=== PATIENT | male | born 1950 | race Caucasian/White ===

== ENCOUNTER 2017-05-15 13:06 | Emergency (ER) | payer MEDICARE ==
[~2017-05-15] VITALS: Ht 170.2 cm; Wt 57.1 kg
[2017-05-15 13:11] VITALS: BP 171/81; PULSE 96; RESP 16; TEMP 98; O2SAT 96
[2017-05-15] MEDS ORDERED: AMLO5 PO (13:21)
[2017-05-15] MEDS ORDERED: LISI-515 PO (13:21)
[2017-05-15] MEDS ORDERED: ASPI81CH CHEW (13:21)
[2017-05-15] MEDS ORDERED: ALLO300T2 PO (13:21)
--- NOTE | 2017-05-15 13:26 | PD ---
HPI Chief Complaint: Bleeding Time Seen by Provider: 13:14 Travel History International Travel<30 days: No Contact w/Intl Traveler<30days: No Traveled to known affect area: No History of Present Illness HPI This 67-year-old male is complaining of bleeding from his rectum. He felt that he was wet and he felt behind him and he noted some bright red blood. He has a history of hemorrhoids and has had sporadic bleeding in the past. The bleeding is having now is not associated with bowel movements and has been fairly consistent. It started about an hour ago. He is not on any blood thinners. He does take a baby aspirin daily. He also has a history of hypertension. [facility] Past Medical History Diminished Hearing: No Gout: Yes Hypertension: Yes Influenza Vaccination: No ?: Not Past Surgical History Surgical History: No Previous Surgery Social History Alcohol Use: Yes Tobacco Use: Yes Allergies-Medications (Allergen,Severity, Reaction): Coded Allergies: No Known Allergies (Unverified , 05/15/17) Reported Meds & Prescriptions Reported Meds & Active Scripts Active Reported Norvasc (Amlodipine Besylate) 5 Mg Tab 5 Mg PO DAILY Lisinopril 20 Mg Tab 20 Mg PO DAILY Allopurinol 300 Mg Tab 300 Mg PO DAILY Aspirin 81 Mg Chew 81 Mg CHEW DAILY Review of Systems General / Constitutional: No: Fever, Chills Eyes: No: Diploplia, Blurred Vision HENT: No: Headaches, Vertigo Cardiovascular: No: Chest Pain or Discomfort, Palpitations Respiratory: No: Cough, Shortness of Breath Gastrointestinal: Positive: Hematochezia, No: Vomiting, Diarrhea Genitourinary: No: Urgency, Frequency Musculoskeletal: No: Myalgias, Arthralgias Skin: No Rash Neurologic: No: Weakness, Dizziness Physical Exam Narrative GENERAL: Well-developed male SKIN: Focused skin assessment warm/dry. HEAD: Atraumatic. Normocephalic. EYES: Pupils equal and round. No scleral icterus. No injection or drainage. ENT: No nasal bleeding or discharge. Mucous membranes pink and moist. NECK: Trachea midline. No JVD. CARDIOVASCULAR: Regular rate and rhythm. No murmur appreciated. RESPIRATORY: No accessory muscle use. Clear to auscultation. Breath sounds equal bilaterally. GASTROINTESTINAL: Abdomen soft, non-tender, nondistended. Hepatic and splenic margins not palpable. On inspection of the anus no bleeding site canbe seen. He does have an external hemorrhoid skin tag. There is a small papule adjacent to the anus which is not bleeding. The patient has been having persistent bleeding not associated with bowel movement suggestive of a source distal to the sphincter MUSCULOSKELETAL: No obvious deformities. No clubbing. No cyanosis. No edema. NEUROLOGICAL: Awake and alert. No obvious cranial nerve deficits. Motor grossly within normal limits. Normal speech. PSYCHIATRIC: Appropriate mood and affect; insight and judgment normal. Data Data Last Documented VS Vital Signs Date Time Temp Pulse Resp B/P Pulse Ox O2 Delivery O2 Flow Rate FiO2 05/15/17 13:11 98.0 96 16 171/81 96 Orders Complete Blood Count With Diff (05/15/17 13:23) Basic Metabolic Panel (Bmp) (05/15/17 13:23) Prothrombin Time / Inr (Pt) (05/15/17 13:23) Act Partial Throm Time (Ptt) (05/15/17 13:23) Labs Laboratory Tests Test 05/15/17 13:25 White Blood Count 8.8 TH/MM3 Red Blood Count 5.28 MIL/MM3 Hemoglobin 15.5 GM/DL Hematocrit 46.7 % Mean Corpuscular Volume 88.5 FL Mean Corpuscular Hemoglobin 29.3 PG Mean Corpuscular Hemoglobin 33.1 % Concent Red Cell Distribution Width 16.5 % Platelet Count 364 TH/MM3 Mean Platelet Volume 6.4 FL Neutrophils (%) (Auto) 61.0 % Lymphocytes (%) (Auto) 25.0 % Monocytes (%) (Auto) 8.7 % Eosinophils (%) (Auto) 3.9 % Basophils (%) (Auto) 1.4 % Neutrophils # (Auto) 5.4 TH/MM3 Lymphocytes # (Auto) 2.2 TH/MM3 Monocytes # (Auto) 0.8 TH/MM3 Eosinophils # (Auto) 0.3 TH/MM3 Basophils # (Auto) 0.1 TH/MM3 CBC Comment DIFF FINAL Differential Comment Prothrombin Time 10.8 SEC Prothromb Time International 1.0 RATIO Ratio Activated Partial 26.6 SEC Thromboplast Time Sodium Level 132 MEQ/L Potassium Level 3.9 MEQ/L Chloride Level 97 MEQ/L Carbon Dioxide Level 26.7 MEQ/L Anion Gap 8 MEQ/L Blood Urea Nitrogen 14 MG/DL Creatinine 0.87 MG/DL Estimat Glomerular Filtration 88 ML/MIN Rate Random Glucose 101 MG/DL Calcium Level 9.3 MG/DL MDM Medical Decision Making Medical Screen Exam Complete: Yes Emergency Medical Condition: Yes Medical Record Reviewed: Yes Differential Diagnosis Differential includes bleeding from a hemorrhoid, the nature of the bleeding suggests us a superficial source Narrative Course lab work was unremarkable. he was reexamined prior to discharge and is no evidence of any bleeding. I have recommended to him that he follow up with colorectal surgery. I suspect hemorrhoidal bleeding which has resolved Diagnosis Primary Impression: External bleeding hemorrhoids Additional Instructions: Follow up with colorectal surgery, return as needed Disposition: 01 DISCHARGE HOME Condition: Stable Gurdeep Shaikh MD May 15, 2017 13:26
[2017-05-15 13:35] LABS: AUTOMATED NEUTROPHIL # 5.4 TH/MM3 (1.8-7.7); BASOPHIL # 0.1 TH/MM3 (0-0.2); BASOPHIL % 1.4 % (0.0-2.0); EOSINOPHIL # 0.3 TH/MM3 (0-0.4); EOSINOPHIL % 3.9 % (0.0-4.0); HEMATOCRIT 46.7 % (39.0-51.0); HEMO FLAGS DIFF FINAL; LYMPHOCYTE # 2.2 TH/MM3 (1.0-4.8); MEAN CELL VOLUME 88.5 FL (80.0-100.0); MEAN CORPUSCULAR HEMOGLOBIN 29.3 PG (27.0-34.0); MEAN CORPUSCULAR HGB CONC 33.1 % (32.0-36.0); MONO % 8.7 % (0.0-8.0); PLATELET COUNT 364 TH/MM3 (150-450); RED BLOOD COUNT 5.28 MIL/MM3 (4.50-5.90); RED CELL DISTRIBUTION WIDTH 16.5 % (11.6-17.2); WHITE BLOOD COUNT 8.8 TH/MM3 (4.0-11.0)
[2017-05-15 13:49] LABS: POTASSIUM 3.9 MEQ/L (3.5-5.1)
[2017-05-15 13:52] LABS: BICARBONATE 26.7 MEQ/L (21.0-32.0)
[2017-05-15 13:54] LABS: APTT (PATIENT) 26.6 SEC (24.3-30.1); PROTHROMBIN TIME - PATIENT 10.8 SEC (9.8-11.6)
[2017-05-15 14:12] VITALS: BP 143/74
== END 2017-05-15 14:15 | disposition home or self-care (01) ==
LOC: PHED 13:06
DX: K64.4 Residual hemorrhoidal skin tags (principal); I10 Essential (primary) hypertension; M10.9 Gout, unspecified; Z72.0 Tobacco use; Z79.82 Long term (current) use of aspirin
CPT/HCPCS: 80048; 85025; 85610; 85730; 99283